=== PATIENT | female | born 1975 | race Caucasian/White ===

== ENCOUNTER 2024-05-29 14:14 | Inpatient (IN) | payer OTHER ==
[~2024-05-29] VITALS: Ht 167.6 cm; Wt 39.7 kg
[2024-05-29 14:16] VITALS: BP 135/85
[2024-05-29 14:43] LABS: BASO # 0.1 10*3/uL (0.0-0.1); BASO % 0.7 % (0.0-1.0); EOS # 0.4 10*3/uL (0.0-0.4); EOS % 4.8 % (1.0-4.0); HEMATOCRIT 38.1 % (37.0-47.0); LYMPH # 1.4 10*3/uL (1.3-4.4); MEAN CELL VOLUME 97.9 fl (81.0-99.0); MEAN CORPUSCULAR HGB CONC 28.6 g/dl (33.0-37.0); MEAN PLATELET VOLUME 9.6 fl (9.6-12.3); MONO # 0.6 10*3/uL (0.1-1.0); MONO % 6.7 % (3.0-9.0); NEUT # 5.9 10*3/uL (2.3-7.9); NEUT % 69.6 % (47.0-73.0); PLATELET COUNT AUTOMATED 379 10*3/uL (130-400); RED BLOOD COUNT 3.89 10*6/uL (4.10-5.10); RED CELL DISTRI WIDTH 16.4 % (0-14.5); WHITE BLOOD COUNT 8.5 10*3/uL (4.8-10.8)
[2024-05-29] MEDS ORDERED: ALPRAZolam 0.25 MG TAB PO ONE (14:50)
[2024-05-29] MEDS ORDERED: CELEXA10 MG GT (15:09)
[2024-05-29] MEDS ORDERED: [UNRECOGNIZED DRUG - OTHER] GT (15:11)
[2024-05-29 15:13] LABS: ALKALINE PHOSPHATASE 137 U/L (46-116); BUN 37 mg/dl (9-23); CHLORIDE 122 mmol/L (98-107); POTASSIUM 3.8 mmol/L (3.4-5.1); SGPT/ALT 50 U/L (5-49); TOTAL PROTEIN 7.7 gm/dL (6.0-8.0)
[2024-05-29] MEDS ORDERED: CEPHALEXIN500 M1 PO (15:13)
[2024-05-29] MEDS ORDERED: HEPARIN SO5000 UNIT1 IJ (15:13)
[2024-05-29] MEDS ORDERED: KEPPRA100 MG/1 M GT (15:14)
[2024-05-29] MEDS ORDERED: OXYCODONE5 M1 GT (15:17)
[2024-05-29] MEDS ORDERED: PROTONIX40 MG GT (15:18)
[2024-05-29] MEDS ORDERED: TPN ELECTROLYTE20 ML IV (15:20)
[2024-05-29] MEDS ORDERED: APLISOL5 TUB UNIT INTRADERM (15:22)
[2024-05-29] MEDS ORDERED: VALTOCO5 MG/0.1 M NAS (15:23)
[2024-05-29] MEDS ORDERED: VIMPAT150 MG PO (15:24)
[2024-05-29] MEDS ORDERED: VIMPAT100 MG GT (15:24)
[2024-05-29] MEDS ORDERED: B121000 MCG/1 IM (15:25)
[2024-05-29] MEDS ORDERED: SODIUM CHLORIDE 0.45% 1,000 ML IV ONE ×2 (17:10→20:00)
[2024-05-29] MEDS ORDERED: ACETAMINOPHEN 325 MG TAB PO PRN (17:50)
[2024-05-29] MEDS ORDERED: Magnesium Hydroxide 30 ML UDC PO PRN (17:50)
[2024-05-29] MEDS ORDERED: BISACODYL 10 MG SUPP R PRN (17:50)
[2024-05-29] MEDS ORDERED: BISACODYL 5 MG TAB PO PRN (17:50)
[2024-05-29] MEDS ORDERED: Ondansetron Hydrochloride 4 MG/2 ML VIAL IV PRN (17:50)
[2024-05-29] MEDS ORDERED: ACETAMINOPHEN 650 MG SUPP R PRN (17:50)
[2024-05-29 19:28] VITALS: BP 132/92
[2024-05-29] MEDS ORDERED: OXYCODONE HCL (IR) 5 MG TAB PO PRN (20:05)
[2024-05-29] MEDS ORDERED: DEXTROSE 10% 1,000 ML IV SCH (20:40)
[2024-05-29] MEDS ORDERED: DEXTROSE 5% 1,000 ML IV SCH (20:55)
[2024-05-29 21:54] LABS: BUN 35 mg/dl (9-23); CHLORIDE 120 mmol/L (98-107); POTASSIUM 3.8 mmol/L (3.4-5.1)
[2024-05-29] MEDS ORDERED: LACOSAMIDE 50 MG TAB GT SCH (22:00)
[2024-05-29] MEDS ORDERED: DIAZEPAM 10 MG/2 ML SYR IV SCH (22:00)
[2024-05-29] MEDS ORDERED: LEVETIRACETAM 500 MG/5 ML UDC GT SCH (22:00)
[2024-05-29] MEDS ORDERED: HEPARIN SODIUM 5,000 UNIT/ML VIAL SC SCH (22:00)
[2024-05-29 22:04] VITALS: BP 132/92
[2024-05-30] VITALS (7 sets, daily range): BP systolic 113–155; BP diastolic 76–106
[2024-05-30] MEDS ORDERED: FOAM BANDAGE 1 EACH BANDAGE T ONE (01:21)
[2024-05-30] MEDS ORDERED: LEPTOSPERMUM HONEY 4 X 5 INCH WOUND DRESSING T ONE (01:22)
[2024-05-30 01:41] LABS: BUN 30 mg/dl (9-23); CHLORIDE 120 mmol/L (98-107); POTASSIUM 4.1 mmol/L (3.4-5.1)
[2024-05-30 06:23] LABS: BASO # 0.1 10*3/uL (0.0-0.1); BASO % 0.7 % (0.0-1.0); EOS # 0.3 10*3/uL (0.0-0.4); EOS % 4.3 % (1.0-4.0); HEMATOCRIT 40.6 % (37.0-47.0); LYMPH # 1.6 10*3/uL (1.3-4.4); LYMPH % 22.6 % (27.0-41.0); MEAN CELL VOLUME 96.7 fl (81.0-99.0); MEAN CORPUSCULAR HGB 28.3 pg (27.0-31.0); MEAN CORPUSCULAR HGB CONC 29.3 g/dl (33.0-37.0); MEAN PLATELET VOLUME 10.5 fl (9.6-12.3); MONO # 0.5 10*3/uL (0.1-1.0); NEUT # 4.5 10*3/uL (2.3-7.9); NEUT % 64.4 % (47.0-73.0); PLATELET COUNT AUTOMATED 315 10*3/uL (130-400); RED CELL DISTRI WIDTH 16.4 % (0-14.5)
[2024-05-30 07:58] LABS: ALKALINE PHOSPHATASE 132 U/L (46-116); BUN 37 mg/dl (9-23); CHLORIDE 119 mmol/L (98-107); CHOLESTEROL 143 mg/dL (<200); FREE T4 1.36 ng/dl (0.89-1.76); LDL CHOLESTEROL 76 mg/dL (9-159); POTASSIUM 3.7 mmol/L (3.4-5.1); SGPT/ALT 48 U/L (5-49); TOTAL PROTEIN 7.1 gm/dL (6.0-8.0); TRIGLYCERIDES 204 mg/dl (<150)
[2024-05-30 08:31] LABS: VITAMIN D, 25-HYDROXY 103.5 ng/mL (30-100)
[2024-05-30] MEDS ORDERED: CITALOPRAM 20 MG TAB PO SCH (10:00)
[2024-05-30] MEDS ORDERED: Pantoprazole Sodium 40 MG PKT NG SCH (10:00)
[2024-05-30] MEDS ORDERED: LACOSAMIDE 50 MG TAB GT SCH (10:00)
[2024-05-30 11:37] LABS: BILIRUBIN Negative (Negative); BLOOD 3+ (Negative); CLARITY Clear (Clear); COLOR Yellow (Yellow); GLUCOSE Negative (Negative); KETONE Negative (Negative); LEUKO ESTERASE Trace (Negative); NITRITE Negative (Negative); PH 6.5 (4.5-8.0); SPECIFIC GRAVITY 1.025 (1.001-1.030); UROBILINOGEN 0.2 E.U./dl (0.0-1.0)
[2024-05-30 11:48] LABS: RBC TNTC rbc/hpf (0-2)
[2024-05-30 12:32] LABS: CHLORIDE 115 mmol/L (98-107); POTASSIUM 3.4 mmol/L (3.4-5.1)
[2024-05-30 12:33] LABS: BUN 24 mg/dl (9-23)
[2024-05-30] MEDS ORDERED: CALCIUM GLUCONATE IV SCH (18:00)
[2024-05-30] MEDS ORDERED: POTASSIUM PHOSPHATE 30 MMOL IV SCH (18:00)
[2024-05-30] MEDS ORDERED: [UNRECOGNIZED DRUG - OTHER] IV SCH (18:00)
[2024-05-30] MEDS ORDERED: POTASSIUM ACETATE IV SCH (18:00)
[2024-05-30] MEDS ORDERED: TOTAL PARENTERAL NUTRITION IV SCH (18:00)
[2024-05-30 18:38] LABS: BUN 27 mg/dl (9-23); CHLORIDE 112 mmol/L (98-107); POTASSIUM 3.8 mmol/L (3.4-5.1)
[2024-05-31] VITALS (8 sets, daily range): BP systolic 104–152; BP diastolic 63–93
[2024-05-31 00:51] LABS: BUN 32 mg/dl (9-23); CHLORIDE 106 mmol/L (98-107)
[2024-05-31] MEDS ORDERED: LEPTOSPERMUM HONEY 0.5 OZ TUBE T ONE (03:16)
[2024-05-31] MEDS ORDERED: FOAM BANDAGE 1 EACH BANDAGE T ONE (03:16)
[2024-05-31] MEDS ORDERED: FOAM BANDAGE HEEL T ONE (03:16)
[2024-05-31] MEDS ORDERED: LEPTOSPERMUM HONEY 4 X 5 INCH WOUND DRESSING T ONE (03:17)
[2024-05-31] MEDS ORDERED: FOAM BANDAGE 5X5 T ONE ×2 (03:17→03:44)
[2024-05-31 06:23] LABS: ALKALINE PHOSPHATASE 129 U/L (46-116); BUN 33 mg/dl (9-23); CHLORIDE 102 mmol/L (98-107); SGPT/ALT 45 U/L (5-49); TOTAL PROTEIN 7.8 gm/dL (6.0-8.0)
[2024-05-31 06:26] LABS: POTASSIUM 4.6 mmol/L (3.4-5.1)
[2024-05-31 08:21] LABS: BUN 37 mg/dl (9-23); CHLORIDE 102 mmol/L (98-107); POTASSIUM 4.3 mmol/L (3.4-5.1)
[2024-05-31] MEDS ORDERED: Metoprolol Tartrate 5 MG/5 ML VIAL IV ONE (08:55)
[2024-05-31] MEDS ORDERED: Ceftriaxone Sodium 1 GM in SYRINGE INFUSION 10 ML IV SCH (13:00)
[2024-05-31] MEDS ORDERED: Metoprolol Tartrate 25 MG TAB PEG SCH (14:00)
[2024-05-31] MEDS ORDERED: SODIUM CHLORIDE 30 MEQ IV SCH (18:00)
[2024-05-31] MEDS ORDERED: CALCIUM GLUCONATE IV SCH (18:00)
[2024-05-31] MEDS ORDERED: [UNRECOGNIZED DRUG - OTHER] IV SCH (18:00)
[2024-05-31] MEDS ORDERED: POTASSIUM ACETATE IV SCH (18:00)
[2024-06-01] VITALS (7 sets, daily range): BP systolic 97–117; BP diastolic 55–86
[2024-06-01 05:53] LABS: ALKALINE PHOSPHATASE 134 U/L (46-116); BUN 41 mg/dl (9-23); CHLORIDE 102 mmol/L (98-107); POTASSIUM 4.4 mmol/L (3.4-5.1); SGPT/ALT 42 U/L (5-49); TOTAL PROTEIN 7.6 gm/dL (6.0-8.0)
[2024-06-01 06:33] LABS: BASO # 0.1 10*3/uL (0.0-0.1); BASO % 0.3 % (0.0-1.0); EOS # 0.1 10*3/uL (0.0-0.4); EOS % 0.5 % (1.0-4.0); HEMATOCRIT 38.5 % (37.0-47.0); LYMPH # 1.3 10*3/uL (1.3-4.4); LYMPH % 7.9 % (27.0-41.0); MEAN CORPUSCULAR HGB 28.1 pg (27.0-31.0); MEAN CORPUSCULAR HGB CONC 30.4 g/dl (33.0-37.0); MEAN PLATELET VOLUME 10.1 fl (9.6-12.3); MONO # 0.5 10*3/uL (0.1-1.0); MONO % 3.4 % (3.0-9.0); NEUT # 13.8 10*3/uL (2.3-7.9); NEUT % 87.4 % (47.0-73.0); PLATELET COUNT AUTOMATED 375 10*3/uL (130-400); RED BLOOD COUNT 4.17 10*6/uL (4.10-5.10); RED CELL DISTRI WIDTH 15.7 % (0-14.5); WHITE BLOOD COUNT 15.8 10*3/uL (4.8-10.8)
[2024-06-01 06:42] LABS: MEAN CELL VOLUME 92.3 fl (81.0-99.0)
[2024-06-01] MEDS ORDERED: Vancomycin Hydrochloride 1,000 MG in SODIUM CHLORIDE 0.9% 250 ML IV SCH (10:00)
[2024-06-01] MEDS ORDERED: Vancomycin Hydrochloride 500 MG in SODIUM CHLORIDE 0.9% 100 ML IV SCH (12:00)
[2024-06-01] MEDS ORDERED: Meropenem 1 GM in SODIUM CHLORIDE 0.9% 100 ML IV SCH (14:00)
[2024-06-01] MEDS ORDERED: SODIUM CHLORIDE IV SCH (18:00)
[2024-06-01] MEDS ORDERED: [UNRECOGNIZED DRUG - OTHER] IV SCH (18:00)
[2024-06-01] MEDS ORDERED: CALCIUM GLUCONATE 1 GM IV SCH (18:00)
[2024-06-01] MEDS ORDERED: POTASSIUM ACETATE IV SCH (18:00)
[2024-06-02] VITALS: BP 117/68
[2024-06-02 04:00] VITALS: BP 124/69
[2024-06-02 04:15] LABS: BASO # 0.1 10*3/uL (0.0-0.1); BASO % 0.4 % (0.0-1.0); EOS # 0.2 10*3/uL (0.0-0.4); EOS % 1.1 % (1.0-4.0); HEMATOCRIT 34.1 % (37.0-47.0); LYMPH # 0.8 10*3/uL (1.3-4.4); LYMPH % 5.4 % (27.0-41.0); MEAN CELL VOLUME 91.9 fl (81.0-99.0); MEAN CORPUSCULAR HGB CONC 30.5 g/dl (33.0-37.0); MEAN PLATELET VOLUME 9.6 fl (9.6-12.3); MONO # 0.6 10*3/uL (0.1-1.0); MONO % 3.8 % (3.0-9.0); NEUT # 12.9 10*3/uL (2.3-7.9); NEUT % 88.7 % (47.0-73.0); PLATELET COUNT AUTOMATED 292 10*3/uL (130-400); RED BLOOD COUNT 3.71 10*6/uL (4.10-5.10); RED CELL DISTRI WIDTH 15.6 % (0-14.5); WHITE BLOOD COUNT 14.6 10*3/uL (4.8-10.8)
[2024-06-02 04:36] LABS: ALKALINE PHOSPHATASE 130 U/L (46-116); BUN 34 mg/dl (9-23); CHLORIDE 103 mmol/L (98-107); POTASSIUM 4.7 mmol/L (3.4-5.1); SGPT/ALT 35 U/L (5-49); TOTAL PROTEIN 7.2 gm/dL (6.0-8.0)
[2024-06-02 08:00] VITALS: BP 128/78
[2024-06-02] MEDS ORDERED: Piperacillin Sodium/Tazobact 50 ML IV SCH (10:00)
[2024-06-02] MEDS ORDERED: Metoprolol Tartrate 5 MG/5 ML VIAL IV ONE (11:35)
[2024-06-02 12:00] VITALS: BP 103/65
[2024-06-02 12:15] LABS: ABG BASE EXCESS -0.2 mmol/L (-2.0-3.0); ABG O2 SATURATION 96.6 % (94.0-98.0); ARTERIAL BLOOD GAS PH 7.408 (7.350-7.450); ARTERIAL BLOOD GAS PO2 97.4 mmHg (83.0-108.0)
[2024-06-02] MEDS ORDERED: FOAM BANDAGE 5X5 T ONE (13:11)
[2024-06-02] MEDS ORDERED: LEPTOSPERMUM HONEY 4 X 5 INCH WOUND DRESSING T ONE (13:12)
[2024-06-02] MEDS ORDERED: LEPTOSPERMUM HONEY 0.5 OZ TUBE T ONE (13:12)
[2024-06-02 16:00] VITALS: BP 90/55
[2024-06-02] MEDS ORDERED: [UNRECOGNIZED DRUG - OTHER] IV SCH (18:00)
[2024-06-02] MEDS ORDERED: SODIUM CHLORIDE IV SCH (18:00)
[2024-06-02] MEDS ORDERED: CALCIUM GLUCONATE IV SCH (18:00)
[2024-06-02] MEDS ORDERED: POTASSIUM ACETATE IV SCH (18:00)
[2024-06-02] MEDS ORDERED: SULFAMETHOXAZOLE PO SCH (22:00)
[2024-06-02] MEDS ORDERED: TRIMETHOPRIM PO SCH (22:00)
[2024-06-02] MEDS ORDERED: TRIMETHOPRI PEG SCH (22:00)
[2024-06-02] MEDS ORDERED: SULFAMETHOXAZOLE PEG SCH (22:00)
== END 2024-06-02 20:17 | disposition short-term general hospital (02) | DRG 871 ==
LOC: ED 14:14 → ICCU 17:07 → EDHOLD 17:07 → ICCU 05-30 19:54
PROVIDERS: Internal Medicine; Internal Medicine Critical Care Medicine; Student in an Organized Health Care Education/Training Program; ADMIT Student in an Organized Health Care Education/Training Program; ATTEND Student in an Organized Health Care Education/Training Program
DX: A41.9 Sepsis, unspecified organism (principal); E43 Unspecified severe protein-calorie malnutrition; J96.01 Acute respiratory failure with hypoxia; J15.69 Pneumonia due to other Gram-negative bacteria; E87.0 Hyperosmolality and hypernatremia; J95.851 Ventilator associated pneumonia; N13.6 Pyonephrosis; N20.1 Calculus of ureter; J93.83 Other pneumothorax; Z68.1 Body mass index [BMI] 19.9 or less, adult; Z66 Do not resuscitate; M81.0 Age-related osteoporosis without current pathological fracture; L89.310 Pressure ulcer of right buttock, unstageable; G80.9 Cerebral palsy, unspecified; R74.01 Elevation of levels of liver transaminase levels; D64.9 Anemia, unspecified; E87.8 Other disorders of electrolyte and fluid balance, not elsewhere classified; K31.84 Gastroparesis; G40.909 Epilepsy, unspecified, not intractable, without status epilepticus; M81.8 Other osteoporosis without current pathological fracture; B96.5 Pseudomonas (aeruginosa) (mallei) (pseudomallei) as the cause of diseases classified elsewhere; Z88.1 Allergy status to other antibiotic agents; Z93.0 Tracheostomy status; Z79.899 Other long term (current) drug therapy